=== PATIENT | female | born 1980 ===

== ENCOUNTER 2025-03-12 02:11 | Inpatient (IN) | payer MEDICAID, SELFPAY ==
[2025-03-12] VITALS (14 sets, daily range): BP systolic 109–126; BP diastolic 58–77; PULSE 43–75; RESP 12–20; TEMP 36–37.1; O2SAT 96–100; BMI 37.1
--- NOTE | ~2025-03-12 | CT_ITS ---
CLINICAL HISTORY: RUQ pain, biliary pathology? CT abdomen and pelvis with contrast Comparison: None Findings: The lung bases are clear. Numerous calcified gallstones within the moderately distended gallbladder. Mild inflammatory change involving the gallbladder neck with wall thickening. No significant pericholecystic fluid. No biliary ductal dilation. The liver and spleen are unremarkable. Pancreas, adrenal glands and kidneys demonstrate no acute process. No radiopaque stones or hydronephrosis. No bowel obstruction, pneumoperitoneum, or pneumatosis. Bladder and reproductive organs are unremarkable. Normal appendix. No fluid collections or adenopathy. No vascular dilation. No acute fracture. IMPRESSION: Numerous calcified gallstones within a moderately distended gallbladder. There may be a stone impacted in the gallbladder neck. Consider right upper quadrant ultrasound. No intra or extrahepatic biliary ductal dilation. This document has been electronically signed by: Pepper Dee MD on 03/12/2025 06:26:20
--- NOTE | ~2025-03-12 | US_ITS ---
EXAMINATION: US ABDOMEN LIMITED CLINICAL INFORMATION: Right upper quadrant pain.. COMPARISON: Correlation made with CT abdomen and pelvis dated same day. TECHNIQUE: Real-time imaging of the right upper quadrant abdominal viscera. FINDINGS: Imaged aspects of the liver appear normal. GALLBLADDER: There are numerous shadowing gallstones within the gallbladder. There is a stone in the region of the gallbladder neck. No definite wall thickening, edema, or pericholecystic fluid collection. There was a positive sonographic Moncada's sign at the time of the examination. COMMON BILE DUCT: Normal in caliber measuring 0.7 cm in diameter. No definite obstructing abnormality. FREE FLUID: None. US/US abdomen limited IMPRESSION: 1. Cholelithiasis with positive sonographic Moncada's sign. No wall thickening or pericholecystic fluid collection evident. Findings are equivocal for acute cholecystitis. 2. There is no biliary dilatation present. Electronically signed by: Nasir Villareal MD 03/12/2025 09:21 AM EDT
[2025-03-12 02:37] LABS: MANUAL DIFF FLAG NO
[2025-03-12 02:38] LABS: Hematocrit 36.3 % (37.0-47.0); Hemoglobin 12.6 g/dl (12.0-16.0); Imm Gran Abs Auto 0.01 X10*3/uL (0.00-0.03); Imm Gran Pct Auto 0.1 % (0.0-0.4); Lymphocytes Absolute Auto 1.6 X10*3/uL (1.2-4.9); Mean Corpuscular HGB Conc 34.7 g/dl (31.0-35.0); Mean Corpuscular Hemoglobin 30.7 pg (27.0-33.0); Mean Corpuscular Volume 88.3 fL (80.0-98.0); NRBC Abs Auto 0.000 X10*3/uL (0.0-0.012); NRBC Pct Auto 0.0 /100WBC (0.0-0.2); Platelet Count 219 X10*3/uL (160-400); Red Blood Count 4.11 X10*6/uL (4.20-5.50); White Blood Count 7.6 X10*3/uL (4.8-10.8)
[2025-03-12 02:39] LABS: Appearance Urine Clear; Glucose Urine UA Negative (Negative); PH 6.5 (5.0-9.0); Specific Gravity - Urine 1.010 (1.005-1.025); UMIC TRIGGER UACC YES
[2025-03-12 03:00] LABS: Anion Gap 12 (12-20); Blood Urea Nitrogen 7 mg/dL (9-16); Calcium 8.8 mg/dL (8.4-10.2); Carbon Dioxide 25 mmol/L (22-29); Chloride 107 mmol/L (96-108); Creatinine Clr Calc Pharmacy 109.2; Estimated Glomerular Filt Rate > 60; Lipase 21 U/L (8-78); Potassium 3.8 mmol/L (3.3-5.1); Sodium 140 mmol/L (135-145)
--- NOTE | 2025-03-12 03:03 | ED_ITS ---
HPI - General Adult General Chief complaint: Abdominal Pain Stated complaint: abd pain Time Seen by Provider: 03/12/25 02:52 Source: patient Limitations: no limitations History of Present Illness ED Provider: Sarita Vale PA-C HPI narrative: 44-year-old female who is morbidly obese, presents with the acute onset upper abdominal pain. Patient states she developed epigastric pain that radiates to the right upper quadrant after eating overnight. Pain fluctuates in intensity, becoming severe at times. Denies nausea vomiting diarrhea. Denies fever. Denies history of kidney stones, hematuria, dysuria. Related Data Previous Rx's ?Medication ?Instructions ?Recorded docusate sodium 100 mg capsule 100 mg PO BID PRN const ipation #30 03/12/25 (Colace) caps ibuprofen 600 mg tablet 600 mg PO Q6H PRN pain #30 t abs 03/12/25 oxycodone 5 mg tablet 5 mg PO Q4H PRN pain (scale score 03/12/25 7-10) #26 tabs Allergies Allergy/AdvReac Type Severity Reaction Status Date / Time No Known Allergies Allergy Verified 03/12/25 02:23 Review of Systems 2 Review of Systems: Yes all other systems are reviewed and are negative Constitutional: Constitutional: Denies fatigue and Denies fever(s) Cardiovascular: Cardiovascular: Denies chest pain and Denies dyspnea Respiratory: Respiratory: Denies cough and Denies dyspnea Gastrointestinal: Gastrointestinal: Reports abdominal pain, Denies diarrhea, Denies nausea and Denies vomiting Genitourinary: Genitourinary: Denies hematuria, Denies dysuria and Denies flank pain Endocrine: Endocrine: Denies fatigue PMFSH Past Medical History Attestation statement: The following information was validated with the patient. Medical History (Updated 03/12/25 @ 11:01 by Presley Pop PA-C) Thyroid nodule Surgical History (Updated 03/12/25 @ 10:20 by Donna Gill) S/P removal of thyroid nodule Social History Social History (Updated 03/12/25 @ 10:24 by Donna Gill) Alcohol intake: never Patient Tobacco Use Status: Never used Tobacco Smoked in Last 30 Days: No Use of substances other than those prescribed or required for medical reasons: No Have you been hit, kicked, punched, or otherwise hurt by someone within the past year? If so, by whom?: No Advance Directives: No Do you have a plan to hurt others: No Plan Patient : No Current occupational status: employed Current occupation: Teacher Physical Exam ED Vital Signs: Vital Signs - 24 hr 03/12/25 02:20 03/12/25 10:29 03/12/25 11:05 Temperature 96.8 F 98.7 F Pulse Rate 54 43 L Respiratory Rate 16 14 14 Blood Pressure 123/70 126/73 Pulse Oximetry 100 100 Oxygen Delivery Method Room Air Room Air 03/12/25 12:32 Temperature 97.4 F Pulse Rate 50 Respiratory Rate 20 Blood Pressure 112/58 L Pulse Oximetry 98 Oxygen Delivery Method Room Air BMI result Body Mass Index 37.1 Const Other: Alert well-appearing Orientation/consciousness: patient oriented x3 Resp Effort & Inspection: normal respiratory effort Cardio Other: Normal peripheral perfusion GI Other: Abdomen is soft, nondistended, mild to moderate tenderness epigastric and right upper quadrant without guarding Skin Other: Warm dry no rash Neuro General: patient oriented x3, gait normal, no focal motor deficits and CN's II- XI intact bilaterally Psych Other: Cooperative Medications Administered Generic Name Dose Route Start Last Admin Trade Name Freq PRN Reason Stop Dose Admin Lactated Ringer's 1,000 mls @ 80 mls/hr 03/12/25 09:45 03/12/25 11:23 Lr IVCONT Infused .[id number] [place] Infusion Piperacillin Sod/Tazobactam 50 mls @ 100 mls/hr 03/12/25 11:00 03/12/25 11:36 Sod 3.375 gm/ Sodium Chloride IV Infused Q6H [place] Infusion Discontinued Medications Generic Name Dose Route Start Last Admin Trade Name Freq PRN Reason Stop Dose Admin Sodium Chloride 1,000 mls @ 999 mls/hr 03/12/25 03:15 03/12/25 07:04 Ns IV 03/12/25 04:15 Infused .[id number] [place] Infusion Lactated Ringer's 1,000 mls @ 100 mls/hr 03/12/25 10:30 03/12/25 11:25 Lr IVCONT 100 mls/hr .Q10H [place] Administration Iohexol 85 ml 03/12/25 05:00 03/12/25 05:01 Iohexol 350 Mg/Ml 100 Ml Infus..Btl IV 03/12/25 05:01 85 ml ONCE ONE Administration Ketorolac Tromethamine 15 mg 03/12/25 03:02 03/12/25 03:27 Ketorolac Tromethamine 15 Mg/Ml Vial IVPUSH 03/12/25 03:03 15 mg ONCE ONE Administration Morphine Sulfate 4 mg 03/12/25 03:02 03/12/25 03:28 Morphine Sulfate 4 Mg/Ml Cartridge IVPUSH 03/12/25 03:03 4 mg ONCE ONE Administration Protocol Morphine Sulfate 4 mg 03/12/25 09:54 03/12/25 11:05 Morphine Sulfate 4 Mg/Ml Cartridge IVPUSH 03/12/25 09:55 4 mg ONCE ONE Administration Protocol Ondansetron HCl 4 mg 03/12/25 03:05 03/12/25 03:27 Ondansetron Hcl 4 Mg/2 Ml Vial IVPUSH 03/12/25 03:06 4 mg ONCE ONE Administration Medical Decision Making Medical Decision Making MDM Narrative: 44-year-old female who is morbidly obese, presents with the acute onset upper abdominal pain. Patient states she developed epigastric pain that radiates to the right upper quadrant after eating overnight. Pain fluctuates in intensity, becoming severe at times. Denies nausea vomiting diarrhea. Denies fever. Denies history of kidney stones, hematuria, dysuria. Problem: Obesity History: Per patient I have considered the following differential diagnoses: Biliary colic, cholecystitis, gastritis, pancreatitis, renal colic Plan: Given distribution of pain, in nature of symptoms, I am considering underlying biliary pathology as the most likely source. This could be gastritis. Obtaining a CT scan. Screening labs including LFTs and magnesium are already in process. Thought about renal colic, the pain does radiate to the right side, however she is not have kidney stones, she has no related symptoms, urine pending. Giving morphine Zofran and IV fluid. I have independently reviewed the following tests: Labs: CT abdomen and pelvis: Possible impacted stone I received sign-out from my colleague MOISES Vale CT scan shows a possible impacted gallstone, right upper quadrant ultrasound recommended. My interpretation of labs: No significant abnormality in patient's hematology and chemistry, normal LFTs. At this time, 06:35, patient states that she has no significant abdominal pain. Ultrasound pending Sign-out given to my colleague Dr. 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 Hawthorne 934am he will come see patient she is still having pain IVF started [facility] Lab Data [facility] Lab Attestation statement: I reviewed the patient's lab results. 03/12/25 02:28 03/12/25 02:28 Labs: Lab Results 03/12/25 03/12/25 Range/Units 02:28 02:33 WBC 7.6 (4.8-10.8) X10*3/uL RBC 4.11 L (4.20-5.50) X10*6/uL Hgb 12.6 (12.0-16.0) g/dl Hct 36.3 L (37.0-47.0) % MCV 88.3 (80.0-98.0) fL MCH 30.7 (27.0-33.0) pg MCHC 34.7 (31.0-35.0) g/dl RDW 13.6 (11.0-16.0) % Plt Count 219 (160-400) X10*3/uL MPV 10.9 (9.4-12.3) fL Immature Gran % (Auto) 0.1 (0.0-0.4) % Neut % (Auto) 68.7 (45-73) % Lymph % (Auto) 21.3 (20-40) % [place] % (Auto) 8.0 (2-11) % Eos % (Auto) 1.6 (0-4) % Baso % (Auto) 0.3 (0-2) % Lymph # (Auto) 1.6 (1.2-4.9) X10*3/uL [place] # (Auto) 0.6 (0.1-1.2) X10*3/uL Eos # (Auto) 0.1 (0.0-0.4) X10*3/uL Baso # (Auto) 0.0 (0.0-0.2) X10*3/uL Abs Immat Gran (auto) 0.01 (0.00-0.03) X10*3/uL Absolute Neuts (auto) 5.2 (2.0-8.3) x10*3/uL Absolute Nucleated RBC 0.000 (0.0-0.012) X10*3/uL Nucleated RBC % (auto) 0.0 (0.0-0.2) /100WBC Sodium 140 (135-145) mmol/L Potassium 3.8 (3.3-5.1) mmol/L Chloride 107 (96-108) mmol/L Carbon Dioxide 25 (22-29) mmol/L Anion Gap 12 (12-20) BUN 7 L (9-16) mg/dL Creatinine 0.81 (0.5-1.4) mg/dL Estim Creat Clear Calc 109.2 Estimated GFR > 60 Random Glucose 109 (60-115) mg/dL Calcium 8.8 (8.4-10.2) mg/dL Magnesium 2.0 (1.6-2.6) mg/dL Total Bilirubin 0.4 (0.0-1.0) mg/dL Direct Bilirubin 0.1 (0.0-0.5) mg/dL AST 24 (5-31) U/L ALT 20 (0-31) U/L Alkaline Phosphatase 62 (39-117) U/L Total Protein 6.8 (6.5-8.0) g/dL Albumin 4.2 (3.5-5.0) g/dL Lipase 21 (8-78) U/L Beta HCG, Quant < 2 mIU/mL Urine Color Yellow Urine Appearance Clear Urine pH 6.5 (5.0-9.0) Ur Specific [place] 1.010 (1.005-1.025) Urine Protein Negative (Neg-Trace) mg/dL Urine Glucose (UA) Negative (Negative) mg/dL Urine Ketones Negative (Negative) mg/dL Urine Blood Negative (Negative) Urine Nitrite Negative (Negative) Ur Leukocyte Esterase Trace H (Negative) Urine RBC 0-2 (0-2) /HPF Urine WBC 0-5 (0-5) /HPF Ur Squamous Epith Cells 6-10 (0-2) /HPF Urine Bacteria 1+ (None Seen) Hyaline Casts 0-2 (0-2) /LPF Independent Interpretation I performed an independent interpretation of an: Ultrasound (+ biliary colic stone near neck) Radiology Impression Discussion of test interpretation with radiology: I have reviewed the radiologist's reading. Radiologist Impression: The lung bases are clear. Numerous calcified gallstones within the moderately distended gallbladder. Mild inflammatory change involving the gallbladder neck with wall thickening. No significant pericholecystic fluid. No biliary ductal dilation. The liver and spleen are unremarkable. Pancreas, adrenal glands and kidneys demonstrate no acute process. No radiopaque stones or hydronephrosis. No bowel obstruction, pneumoperitoneum, or pneumatosis. Bladder and reproductive organs are unremarkable. Normal appendix. No fluid collections or adenopathy. No vascular dilation. No acute fracture. IMPRESSION: Numerous calcified gallstones within a moderately distended gallbladder. There may be a stone impacted in the gallbladder neck. Consider right upper quadrant ultrasound. No intra or extrahepatic biliary ductal dilation. Critical Care Time Critical Care Time Critical Care Time: Yes Total Critical Care Time: 45 Attestation: I have personally provided critical care time. Time includes review of lab data, radiology results, discussion with consultants, and monitoring for potential decompensation. Intervention performed as documented. Discharge Plan Discharge Clinical Impression: Cholelithiasis Qualifiers: Cholelithiasis location: gallbladder Cholecystitis presence: without cholecystitis Biliary obstruction: without biliary obstruction Qualified Code(s): K80.20 - Calculus of gallbladder without cholecystitis without obstruction Abdominal pain Qualifiers: Abdominal location: right upper quadrant Qualified Code(s): R10.11 - Right upper quadrant pain Patient Disposition: Xfer Other Transfer Details: short stay surgery Discharge Date/Time: 03/12/25 12:15
[2025-03-12 04:26] LABS: Alanine Aminotransferase 20 U/L (0-31); Albumin Level 4.2 g/dL (3.5-5.0); Alkaline Phosphatase 62 U/L (39-117); Aspartate Amino Transferase 24 U/L (5-31); Magnesium 2.0 mg/dL (1.6-2.6); Total Protein 6.8 g/dL (6.5-8.0)
[2025-03-12] MEDS: iohexoL 350 MG/ML 100 ML INFUS..BTL 85 ML IV (05:01)
--- NOTE | 2025-03-12 10:12 | P.HPGS_ITS ---
History of Present Illness History of Present Illness Date of Service: 03/12/25 <Donna Gill - Last Filed: 03/12/25 10:51> 03/12/25 <Presley Pop PA-C - Last Filed: 03/12/25 14:54> 03/13/25 <Kendall Hawthorne MD - Last Filed: 03/13/25 10:17> Chief complaint: Acute cholecystitis <Donna Gill - Last Filed: 03/12/25 10:51> Narrative: Rafi Cortes is a 44 year old F with a PMH of hypothyroidism coming in for acute abdominal pain. Patient reports burning RUQ pain that radiates to the LUQ. Pain woke her up last night, rated a 40/10, prompting her to visit the ER in [facility]. She left [facility] and came to [place]. Pain improved with IV morphine and IV toradol, now rated a 6/10. No prior similar episodes. Last BM yesterday afternoon. Passing flatulence. Patient reports associated nausea. No fever, chills, or skin changes. No sick contacts. <Donna Gill - Last Filed: 03/12/25 10:51> Rafi Cortes is a 44 year old F with a PMH of hypothyroidism coming in for acute abdominal pain. Patient reports burning RUQ pain that radiates to the LUQ. Pain woke her up last night, rated a 40/10, prompting her to visit the ER in [facility]. She left [facility] and came to [place]. Pain improved with IV morphine and IV toradol, now rated a 6/10. No prior similar episodes. Last BM yesterday afternoon. Passing flatulence. Patient reports associated nausea. No fever, chills, or skin changes. No sick contacts. Patient had no history of previous episodes similar to her symptoms. Labs were drawn emergency department, she does not have leukocytosis no elevations in liver enzymes and bilirubin. Patient had CT showing numerous large gallstones moderately distended gallbladder and some mild inflammatory changes with wall thickening. No biliary duct dilation. Abdominal ultrasound was also performed patient had a positive sonographic Moncada's sign, ultrasound did not show wall thickening. There was a stone in the region of the gallbladder neck findings are equivocal, suggesting acute cholecystitis. She denies any history of abdominal surgery. Medications include daily levothyroxine. Denies allergies. She denies cigarette use, recreational drug use, occasional alcohol use. <Presley Pop PA-C - Last Filed: 03/12/25 14:54> Review of Systems Review of Systems: Yes all other systems are reviewed and are negative <Presley Pop PA-C - Last Filed: 03/12/25 14:54> Constitutional: Comments: Negative fever, + chills <Donna Gill - Last Filed: 03/12/25 10:51> Gastrointestinal: Comments: + Nausea, + vomiting <Donna Gill - Last Filed: 03/12/25 10:51> PMFSH Past Medical History Medical History: Medical History (Updated 03/12/25 @ 11:01 by Presley Pop PA-C) Thyroid nodule <Donna Gill - Last Filed: 03/12/25 10:51> Surgical History Surgical History: Surgical History (Updated 03/12/25 @ 10:20 by Donna Gill) S/P removal of thyroid nodule <Donna Gill - Last Filed: 03/12/25 10:51> Social History Social History: Social History (Updated 03/12/25 @ 10:24 by Donna Gill) Household Members: Children Housing: House Do you presently have visiting nurse or other home services: No Alcohol intake: never Patient Tobacco Use Status: Never used Tobacco Smoked in Last 30 Days: No Use of substances other than those prescribed or required for medical reasons: No Currently Displaying Signs/Symptoms of Drug Intoxication Withdrawal: No Have you been hit, kicked, punched, or otherwise hurt by someone within the past year? If so, by whom?: No Do you feel safe in your current relationship?: No Current Relationship Is there a partner from a previous relationship who is making you feel unsafe now?: No Are you made to feel afraid or neglected: No Advance Directives: No Do you have a plan to hurt others: No Plan Recently lost weight without trying: No Eating poorly because of decreased appetite: No Nutrition Risks: No Nutritional Risk Patient : No : No Poor oral hygiene: No Current occupational status: employed Current occupation: Teacher <Donna Gill - Last Filed: 03/12/25 10:51> Meds Allergies/Adverse reactions: Allergies Allergy/AdvReac Type Severity Reaction Status Date / Time No Known Allergies Allergy Verified 03/12/25 02:23 <Donna Jairo - Last Filed: 03/12/25 10:51> Active Medications: Current Medications Lactated Ringer's (Lr) 1,000 mls @ 80 mls/hr IVCONT .[id number] [place] <Donna Jairo - Last Filed: 03/12/25 10:51> Home medications: Home Medications ?Medication ?Instructions ?Recorded ?Confirmed ?Last Taken ?Type cholecalciferol (vitamin D3) 25 25 mcg PO DAILY 03/12/25 03/11/25 History mcg (1,000 unit) tablet (Vitamin D3) levothyroxine 137 mcg tablet 137 mcg PO DAILY@0600 07/2703/12/25 03/11/25 History <Donna Jairo - Last Filed: 03/12/25 10:51> Physical Exam Vital Signs: Vital Signs: Last Vital Signs Temp 96.8 F 03/12/25 02:20 Pulse 54 03/12/25 02:20 Resp 16 03/12/25 02:20 BP 123/70 03/12/25 02:20 Pulse Ox 100 03/12/25 02:20 O2 Del Method Room Air 03/12/25 02:20 BMI result Body Mass Index 37.1 <Donna [place] - Last Filed: 03/12/25 10:51> Const: General: no acute distress <Donna [place] - Last Filed: 03/12/25 10:51> Orientation/consciousness: patient oriented x3 <Donna [place] - Last Filed: 03/12/25 10:51> Resp: Effort & Inspection: normal respiratory effort <Donna Jairo - Last Filed: 03/12/25 10:51> Effort & Inspection: able to speak in complete sentences <Presley Pop PA-C - Last Filed: 03/12/25 14:54> GI: Other: Abdomen soft, diffusely tender in RUQ and LUQ, non-distended, no rebound tenderness, negative moncada's sign, negative psoas sign <Donna [place] - Last Filed: 03/12/25 10:51> Inspection: No distended <Presley Pop PA-C - Last Filed: 03/12/25 14:54> Palpation (GI): Soft to palpation, not firm, Tenderness to palpation present (GI) in the RUQ; Moncada's sign negative, no guarding and not rigid <Presley Pop PA-C - Last Filed: 03/12/25 14:54> Skin: General skin exam: no rashes or lesions noted <Donna Jairo - L ast Filed: 03/12/25 10:51> General skin exam: no jaundice <Presley Pop PA-C - Last Filed: 03/12/25 14:54> Neuro: General: patient oriented x3 and moves all extremities <Donna Jairo - Last Filed: 03/12/25 10:51> Extrem: General: Yes no clubbing, cyanosis or edema <Donna [place]airo - Last Filed: 03/12/25 10:51> Psych: Mental Status: mental status grossly normal <Donna Jairo - Last Filed: 03/12/25 10:51> Results Results Labs: Short CBC 03/12/25 Range/Units 02:28 WBC 7.6 (4.8-10.8) X10*3/uL Hgb 12.6 (12.0-16.0) g/dl Hct 36.3 L (37.0-47.0) % Plt Count 219 (160-400) X10*3/uL BMP 03/12/25 02:28 Sodium 140 Potassium 3.8 Chloride 107 Carbon Dioxide 25 BUN 7 L Creatinine 0.81 Calcium 8.8 Liver Function 03/12/25 Range/Units 02:28 Total Bilirubin 0.4 (0.0-1.0) mg/dL Direct Bilirubin 0.1 (0.0-0.5) mg/dL AST 24 (5-31) U/L ALT 20 (0-31) U/L Alkaline Phosphatase 62 (39-117) U/L Albumin 4.2 (3.5-5.0) g/dL Urine 03/12/25 Range/Units 02:33 Urine Color Yellow Urine Appearance Clear Urine pH 6.5 (5.0-9.0) Ur Specific [place] 1.010 (1.005-1.025) Urine Protein Negative (Neg-Trace) mg/dL Urine Glucose (UA) Negative (Negative) mg/dL <Donna [place] - Last Filed: 03/12/25 10:51> Assessment and Plan (1) Acute cholecystitis: Status: Acute <Donna Gill - Last Filed: 03/12/25 10:51> Patient with right upper quadrant pain for about 2 days Current exam shows tenderness WBC normal CAT scan shows gallstones with 1 in the neck of the gallbladder She continues to have pain She wants to proceed with cholecystectomy I explained the technique of laparoscopic cholecystectomy and possible open cholecystectomy I reviewed the risks including but not limited to bleeding, infections, injury to other organs including bowel, liver, bile duct, bile leak, retained stones, as well as the benefits and alternatives I reviewed with her what to expect postoperatively She has given consent I have seen and examined the patient independently <Kendall Hawthorne MD - Last Filed: 03/13/25 10:17> Rafi Cortes is a 44 y/o F with a PMH of hypothyroidism and thyroid nodule removal coming in for acute 40/10 abdominal pain, onset last night. Pain relieved to a 6/10 with IV morphine. On PE, abdomen was soft, tender to palpation in the RUQ and LUQ, and non-distended. Negative moncada's sign and no rebound tenderness. Labs show a WBC of 7.6. Abdominal ultrasound revealed gallbladder stones in the neck of the gallbladder with shadowing, as well as a positive sonographic moncada's sign. CT revealed mild gallbladder distention and inflammation and numerous gallstones. Findings consistent with acute cholecystitis. For plan, proceed with laparoscopic cholecystectomy. Procedure discussed with the patient. Patient wants to proceed. Continue IV fluids, IV toradol, IV morphine, and NPO status. <Donna Gill - Last Filed: 03/12/25 10:51> Rafi Cortes is a 44 y/o F with a PMH of hypothyroidism and thyroid nodule removal coming in for acute 40/10 abdominal pain, onset last night. Pain relieved to a 6/10 with IV morphine. On PE, abdomen was soft, tender to palpation in the RUQ and LUQ, and non-distended. Negative moncada's sign and no rebound tenderness. Labs show a WBC of 7.6. Abdominal ultrasound revealed gallbladder stones in the neck of the gallbladder with shadowing, as well as a positive sonographic moncada's sign. CT revealed mild gallbladder distention and inflammation and numerous gallstones. Findings consistent with acute cholecystitis. For plan, proceed with laparoscopic cholecystectomy. Procedure discussed with the patient. Patient wants to proceed. Continue IV fluids, IV toradol, IV morphine, and NPO status. Patient seen and evaluated independently I agree with the above assessment and plan. Reviewed the imaging including the ultrasound and abdominal CT. There was evidence of multiple large stones in the gallbladder in the area of the neck with mild inflammatory changes. She does not have leukocytosis at this point. She was admitted to the surgical service. Patient was started on IV Zosyn, IV fluids, pain regimen, she is currently NPO. We discussed options for treatment, patient would like to proceed with laparoscopic cholecystectomy possible open this afternoon, this will be added on to the OR schedule. Discussed the risks of surgery including bleeding, infection damage to surrounding organs. Patient understands these risks and would like to proceed with surgical intervention <Presley Pop PA-C - Last Filed: 03/12/25 14:54> Rafi Cortes is a 44 y/o F with a PMH of hypothyroidism and thyroid nodule removal coming in for acute 40/10 abdominal pain, onset last night. Pain relieved to a 6/10 with IV morphine. On PE, abdomen was soft, tender to palpation in the RUQ and LUQ, and non-distended. Negative moncada's sign and no rebound tenderness. Labs show a WBC of 7.6. Abdominal ultrasound revealed gallbladder stones in the neck of the gallbladder with shadowing, as well as a positive sonographic moncada's sign. CT revealed mild gallbladder distention and inflammation and numerous gallstones. Findings consistent with acute cholecystitis. For plan, proceed with laparoscopic cholecystectomy. Procedure discussed with the patient. Patient wants to proceed. Continue IV fluids, IV toradol, IV morphine, and NPO status. Patient seen and evaluated independently I agree with the above assessment and plan. Reviewed the imaging including the ultrasound and abdominal CT. There was evidence of multiple large stones in the gallbladder in the area of the neck with mild inflammatory changes. She does not have leukocytosis at this point. She was admitted to the surgical service. Patient was started on IV Zosyn, IV fluids, pain regimen, she is currently NPO. We discussed options for treatment, patient would like to proceed with laparoscopic cholecystectomy possible open this afternoon, this will be added on to the OR schedule. Discussed the risks of surgery including bleeding, infection damage to surrounding organs. Patient understands these risks and would like to proceed with surgical intervention <Kendall Hawthorne MD - Last Filed: 03/13/25 10:17> Quality Stroke Does the patient have a stroke diagnosis?: No <Presley Pop PA-C - Last Filed: 03/12/25 14:54> VTE Prior VTE?: No <Presley Pop PA-C - Last Filed: 03/12/25 14:54> VTE Risk Level:: Surgical - moderate <Presley Pop PA-C - Last Filed: 03/12/25 14:54> VTE Device Contraindication: N/A - Device Ordered <Presley Pop PA-C - Last Filed: 03/12/25 14:54> VTE Drug Contraindication: Treatment Not Indicated <Presley Pop PA-C - Last Filed: 03/12/25 14:54> Procedures Date of Service Date of Service: 03/12/25 <Donna Gill - Last Filed: 03/12/25 10:51> 03/12/25 <Presley Pop PA-C - Last Filed: 03/12/25 14:54> 03/13/25 <Kendall Hawthorne MD - Last Filed: 03/13/25 10:17>
--- NOTE | 2025-03-12 10:42 | PC.NURSE ---
Patient presents to Ed c/o upper abdominal pain rated 10/10. Denies n/v. +bowel sounds. 20G in LAC. Abdomen CT revealed numerous gallstones. Patient to receive laparoscopic cholecystectomy, patient NPO. VSS and up to date. Report given to Surgery Short Stay.
[2025-03-12] MEDS: Lactated Ringers 1,000 ML 80 ML IVCONT ×2 (10:51→17:25)
[2025-03-12] MEDS: Lactated Ringers 1,000 ML 100 ML IVCONT (11:25)
--- NOTE | 2025-03-12 12:15 | PC.NURSE ---
patient transported to OR at this time.
--- NOTE | 2025-03-12 12:47 | P.CONAN_ITS ---
Documented by User: Kelly Tom NP 03/12/25 11:01 HPI - Anesthesia Eval Consult details Narrative: 44 yr old female for laparoscopic cholecystectomy. No chest pain or SOB. PMFSH Active Problems Active Problems: All Active Problems Abdominal pain (Acute) Cholelithiasis (Acute) Past Medical History Medical History (Updated 03/12/25 @ 11:01 by Presley Pop PA-C) Thyroid nodule Surgical History Surgical History (Updated 03/12/25 @ 10:20 by Donna Gill) S/P removal of thyroid nodule Social History Social History (Updated 03/12/25 @ 10:24 by Donna Gill) Alcohol intake: never Patient Tobacco Use Status: Never used Tobacco Smoked in Last 30 Days: No Use of substances other than those prescribed or required for medical reasons: No Have you been hit, kicked, punched, or otherwise hurt by someone within the past year? If so, by whom?: No Advance Directives: No Do you have a plan to hurt others: No Plan Patient : No Current occupational status: employed Current occupation: Teacher Meds Allergies Allergy/AdvReac Type Severity Reaction Status Date / Time No Known Allergies Allergy Verified 03/12/25 02:23 Active Medications: Current Medications Lactated Ringer's (Lr) 1,000 mls @ 80 mls/hr IVCONT .[id number] [place] Exam Height,Weight and Vital Signs: Height 5 ft 6 in Weight 104.326 kg Last Vital Signs Temp 96.8 F 03/12/25 02:20 Pulse 54 03/12/25 02:20 Resp 16 03/12/25 02:20 BP 123/70 03/12/25 02:20 Pulse Ox 100 03/12/25 02:20 O2 Del Method Room Air 03/12/25 02:20 Pertinent Lab Results Pertinent Lab Results: Laboratory Tests 03/12/25 03/12/25 02:28 02:33 WBC 7.6 RBC 4.11 L Hgb 12.6 Hct 36.3 L MCV 88.3 MCH 30.7 MCHC 34.7 RDW 13.6 Plt Count 219 MPV 10.9 Immature Gran % (Auto) 0.1 Neut % (Auto) 68.7 Lymph % (Auto) 21.3 [place] % (Auto) 8.0 Eos % (Auto) 1.6 Baso % (Auto) 0.3 Lymph # (Auto) 1.6 [place] # (Auto) 0.6 Eos # (Auto) 0.1 Baso # (Auto) 0.0 Abs Immat Gran (auto) 0.01 Absolute Neuts (auto) 5.2 Absolute Nucleated RBC 0.000 Nucleated RBC % (auto) 0.0 Sodium 140 Potassium 3.8 Chloride 107 Carbon Dioxide 25 Anion Gap 12 BUN 7 L Creatinine 0.81 Estim Creat Clear Calc 109.2 Estimated GFR > 60 Random Glucose 109 Calcium 8.8 Magnesium 2.0 Total Bilirubin 0.4 Direct Bilirubin 0.1 AST 24 ALT 20 Alkaline Phosphatase 62 Total Protein 6.8 Albumin 4.2 Lipase 21 Urine Color Yellow Urine Appearance Clear Urine pH 6.5 Ur Specific [place] 1.010 Urine Protein Negative Urine Glucose (UA) Negative Urine Ketones Negative Urine Blood Negative Urine Nitrite Negative Ur Leukocyte Esterase Trace H Urine RBC 0-2 Urine WBC 0-5 Ur Squamous Epith Cells 6-10 Urine Bacteria 1+ Hyaline Casts 0-2 Airway Mallampati Class: II TM Dist: >3cm Neck ROM: Full Loose/Missing/Broken Teeth: Yes, Upper (chipped right upper ? 4 or 5) and Lower (missing molars b/l) Heart: RRR Lungs: clear to auscultation b/l Documented by User: Lianna Barrios DO 03/12/25 12:49 [facility] Past Medical History Medical History (Updated 03/12/25 @ 11:01 by Presley Pop PA-C) Thyroid nodule Family History Family history of problems with anesthesia: No Surgical History Surgical History (Updated 03/12/25 @ 10:20 by Donna Gill) S/P removal of thyroid nodule History of Problems with Anesthesia: No Social History Social History (Updated 03/12/25 @ 10:24 by Donna Gill) Alcohol intake: never Patient Tobacco Use Status: Never used Tobacco Smoked in Last 30 Days: No Use of substances other than those prescribed or required for medical reasons: No Have you been hit, kicked, punched, or otherwise hurt by someone within the past year? If so, by whom?: No Advance Directives: No Do you have a plan to hurt others: No Plan Patient : No Current occupational status: employed Current occupation: Teacher Meds Allergies Allergy/AdvReac Type Severity Reaction Status Date / Time No Known Allergies Allergy Verified 03/12/25 02:23 Exam Exam Date and Time: 03/12/25 1245 Airway Mallampati Class: II TM Dist: >3cm Neck ROM: Full Loose/Missing/Broken Teeth: Yes (chipped right upper incisor and missing molars) Heart: S1S2 Lungs: CTAB Assessment and Plan Assessment Anesthesia Assessment: Anesthesia Plan Discussed and Chart Reviewed Final Anesthetic Review Family History of Problems with Anesthesia: No History of Problems with Anesthesia: No NPO: Yes ASA Class: II Final Preanesthetic Review: No Changes in Pt Med Stat, Meds/Allgs Chart Reviewed, Consent Obtained/Reviewed and Anes Risks/Benef Reviewed Patient Risk: Low Procedure Risk: Intermediate Anesthetic Plan Anesthetic Plan: GA and Agree w/ Assess. and Plan Disposition: Standard PACU
--- NOTE | 2025-03-12 15:01 | W.PM.OPN ---
Operative Note Operative Note Date of Service: 03/12/25 Narrative: Preop diagnosis: Acute cholecystitis Postop diagnosis: The same Procedure: Laparoscopic cholecystectomy Surgeon: Kendall Hawthorne MD visitor services information assistant: MOISES Pop The patient is a 44 year old female here in the ER this morning for right upper quadrant pain. She had imaging studies showed gallstones but she had gallbladder distention and significant tenderness in the right upper quadrant. She therefore wanted to proceed with cholecystectomy. She understood the technique of the planned procedure as well as the risks, benefits, and alternatives. She was brought to the operating room. She was placed supine under general anesthesia via endotracheal tube. The abdomen was prepped and draped in the usual sterile fashion. A surgical time-out was done. The patient was receiving scheduled IV Zosyn. I made a short supraumbilical incision with a blade 15. This was carried down through the full-thickness of the skin and thick subcutaneous fat down to the fascia. The fascia was incised. The peritoneum was entered. Through this incision a Irvin port was introduced. Pneumoperitoneum was introduced to a pressure of 15 mm Hg. From here on the rest of the procedure was done under vision with the 10 mm 0 degree scope. With laparoscopic visualization and inserted a 12 mm port in the epigastric area below the subcostal margin. Two 5 mm ports introduced a small incision below the subcostal margin along the anterior axillary line and the midclavicular line. Graspers were placed through these working ports. The patient is placed in a head up and [id number] position The fundus of the gallbladder was seen. This was markedly distended very erythematous definitely inflamed. This was also covered on the anterior wall by adherent omentum. We had to do a lot of careful dissection using the [place] dissector to peel off this thick omentum from the anterior gallbladder wall. We also used the tip of the laparoscopic suction catheter to do blunt dissection to continue to peel off this omentum from the rest of the gallbladder until was able to expose the neck. The gallbladder was markedly distended, very inflamed and edematous. We continued to use the [place] dissector to strip off all this indurated and fatty tissue from the neck until we are able to visualize what appeared to be the cystic duct. There was note of a lot of oozing from the entire area in view of the severe inflammation. Another grasper applied towards the neck of the gallbladder to retract this laterally. At this point therefore the bladder was being retracted in cephalad and lateral fashion to put the area of the cystic duct on stretch. I gently dissected the neck of the gallbladder with the [place] dissector to define the confluence with the cystic duct. We had to do a careful dissection in view of the severe induration in the area. We continued with this manner of dissection by peeling off the peritoneum of the gallbladder until I was able to carefully confirmed the confluence of the cystic duct with the neck of the gallbladder. With this dissection, we are able to also achieve a critical view of the hepatocystic triangle. There was note of significant oozing from the gallbladder throughout the dissection in view of the acute inflammation. The cystic artery was also just alongside the duct. We therefore applied clips on the cystic duct with 2 clips being applied distally. The cystic duct was transected between clips with Endo scissors. We gently dissected the artery some more. We then applied clips with 2 clips being applied distally. The cystic artery was transected between clips endo-scissors. With a retraction of the gallbladder away from the liver bed, I proceeded to then gently divide the hilum with the electrocautery hook. We incised the peritoneum of the gallbladder he had interface with the liver bed with electrocautery. The gallbladder was very edematous, and severe inflamed. We proceeded with separation of the gallbladder from the liver bed along without the well-defined plane of dissection using a combination of blunt dissection and electrocautery hook all the way to the fundus until the entire gallbladder was completely from the liver bed. The gallbladder was retrieved through an endobag through the umbilical incision. I reinserted all ports and re-insufflated. I examined all 4 quadrants. There was no other pathology. There was no evidence of any bowel injury or any bile leak . Once we confirmed good hemostasis, I desufflated through the port sites. I removed all ports under vision with the laparoscope. The umbilical port was removed last. The fascia of the umbilical incision was closed with a [id number] Polysorb 0 stitch. Skin closure was achieved on all incisions with Polysorb 4-0 subcuticular running sutures. All incisions were infiltrated with Marcaine 0.5% for postop analgesia. Steri-Strips and dressings were applied. The patient tolerated the procedure well. There were no immediate complications. Initial and final counts of sponges and instruments were correct. Estimated blood loss was about 50 cc. The patient was extubated without difficulty and transferred to the recovery room with stable vital signs.
--- NOTE | 2025-03-12 17:45 | PM.EVENT ---
Event Note Date of Service: 03/12/25 Event Note: Seen postop Underwent laparoscopic cholecystectomy earlier Looks comfortable Says she has good pain control Stable vital signs Abdomen is soft Pain management Diet as tolerated Likely home tomorrow Family in the room Time Spent With Patient Time: Total time managing care of this patient today ____ minutes.
[2025-03-12] MEDS: oxyCODONE HCl Immed Release 5 MG TABLET PO (18:00)
--- NOTE | 2025-03-12 18:46 | PHA.MEDREC ---
Addendum entered by Edenilson Stinson [facility] 03/12/25 18:48: med rec reviewed Original Note: Pharmacy Consult ? Medication Reconciliation Pharmacy has completed the medication reconciliation Spoke to patient to confirm med list. .
[2025-03-13] MEDS: oxyCODONE HCl Immed Release 5 MG TABLET PO ×2 (03:21→11:10)
[2025-03-13 03:52] VITALS: BP 130/66; PULSE 50; RESP 18; TEMP 36.6; O2SAT 93
[2025-03-13 07:45] VITALS: BP 93/52; PULSE 56; RESP 16; TEMP 36.3; O2SAT 93
[2025-03-13] MEDS: Lactated Ringers 1,000 ML 80 ML IVCONT (08:05)
--- NOTE | 2025-03-13 10:15 | PM.PNGS ---
Subjective Subjective Date of Service: 03/13/25 Interval history: No events overnight Feels well overall Good pain control Tolerating diet Physical Exam Vital Signs: Vital Signs: Last Vital Signs Temp 97.3 F 03/13/25 07:45 Pulse 56 03/13/25 07:45 Resp 16 03/13/25 07:45 BP 93/52 L 03/13/25 07:45 Pulse Ox 93 03/13/25 07:45 O2 Del Method Room Air 03/13/25 07:45 O2 Flow Rate 4 03/12/25 15:30 BMI result Body Mass Index 37.1 Const: General: comfortable and no acute distress Resp: Effort & Inspection: normal respiratory effort Cardio: Rate: regular rate GI: Palpation (GI): Soft to palpation, not firm and no guarding Objective Data Active Medications Acetaminophen (Acetaminophen 325 Mg Tablet) 650 mg PO Q6H PRN PRN Reason: Pain, Mild 1-3,fever,headache Calcium Carbonate (Calcium Carbonate 750 Mg Tab.Chew) 750 mg PO Q4H PRN PRN Reason: Heartburn Lactated Ringer's (Lr) 1,000 mls @ 80 mls/hr IVCONT .[id number] [facility] Last Admin: 03/13/25 08:05 Dose: 80 mls/hr Documented By: ELLYN Magnesium Hydroxide (Milk Of Magnesia 30 Ml Oral.Susp) 30 ml PO DAILY PRN PRN Reason: Constipation Melatonin (Melatonin 3 Mg Tablet) 6 mg PO BEDTIME PRN PRN Reason: Insomnia Morphine Sulfate (Morphine Sulfate 4 Mg/Ml Cartridge) 4 mg IVPUSH Q4H PRN; Protocol PRN Reason: Pain, Severe (Pain Scale 7-10) Ondansetron HCl (Ondansetron Hcl 4 Mg/2 Ml Vial) 4 mg IVPUSH Q8H PRN PRN Reason: Nausea and Vomiting Oxycodone HCl (Oxycodone Hcl Immed Release 5 Mg Tablet) 5 mg PO Q6H PRN PRN Reason: Pain, Moderate(Pain Scale 4-6) Last Admin: 03/13/25 03:21 Dose: 5 mg Documented By: NADEEN Comments: per pt request Sodium Chloride (0.9 % Sodium Chloride Flush 3 Ml Syringe) [facility] Last Admin: 03/13/25 08:06 Dose: Not Given Documented By: ELLYN Non-Admin Reason: IV Running Labs 03/12/25 02:28 03/12/25 02:28 Labs: Laboratory Results - last 24 hr 03/12/25 02:28 Beta HCG, Quant < 2 Procedures Date of Service Date of Service: 03/13/25 Progress Note: A&P Assessment and plan (1) Acute cholecystitis: Status: Acute Assessment and Plan: Status post laparoscopic cholecystectomy Doing very well Tolerating diet Okay to DC home today Discharge instructions reinforced with the patient She will follow up in the office Time Spent With Patient Time: Total time managing care of this patient today ____ minutes. Quality Stroke Does the patient have a stroke diagnosis?: No VTE Prior VTE?: No VTE Risk Level:: Surgical - moderate VTE Device Contraindication: N/A - Device Ordered VTE Drug Contraindication: Treatment Not Indicated
--- NOTE | 2025-03-13 10:52 | MHC.CM.PN ---
PT REPORTS SHE SHARES A HOME WITH HER SISTER AND SON SHE IS INDEPENDENT WITH CARE AND HAS NO DME SHE DECLINES A HCP SHE DOES NOT HAVE A PCP, LIST PROVIDED PT WILL DC HOME TODAY WITH NO SERVICES VIA PRIVATE TRANSPORT
--- NOTE | 2025-03-13 14:57 | HO.POSTANES ---
Post Anesthesia Evaluation Post Anesthesia Evaluation Date of Service: 03/13/25 Vital Signs: Vital Signs Temp Pulse Resp BP Pulse Ox O2 Del Method 03/13/25 07:45 97.3 F 56 16 93/52 L 93 Room Air 03/13/25 03:52 97.8 F 50 18 130/66 93 Room Air Anesthesia: General Endotracheal-GETA Mental Status: Awake Pain Control: Satisfactory Nausea/Vomiting: None Hydration: Adequate Anesthesia-Related Issues: No Anes. Related Issues
--- NOTE | 2025-03-17 08:57 | P.DS_ITS ---
DS: Providers Provider Date of Service: 03/13/25 Date of admission: 03/12/25 13:01 Date of discharge: 03/13/25 Primary care physician: Unknown Physician Admitting clinician: Kendall Hawthorne Attending physician on admission: Kendall Hawthorne Attending physician on discharge: Kendall Hawthorne DS: Diagnosis Discharge Diagnosis (1) Acute cholecystitis: Status: Acute DS: Summary Hospital Course Hospital Course: admission HPI: Rafi Cortes is a 44 year old F with a PMH of hypothyroidism coming in for acute abdominal pain. Patient reports burning RUQ pain that radiates to the LUQ. Pain woke her up last night, rated a 40/10, prompting her to visit the ER in [facility]. She left [facility] and came to [place]. Pain improved with IV morphine and IV toradol, now rated a 6/10. No prior similar episodes. Last BM yesterday afternoon. Passing flatulence. Patient reports associated nausea. No fever, chills, or skin changes. No sick contacts. Patient had no history of previous episodes similar to her symptoms. Labs were drawn emergency department, she does not have leukocytosis no elevations in liver enzymes and bilirubin. Patient had CT showing numerous large gallstones moderately distended gallbladder and some mild inflammatory changes with wall thickening. No biliary duct dilation. Abdominal ultrasound was also performed patient had a positive sonographic Mu rphy's sign, ultrasound did not show wall thickening. There was a stone in the region of the gallbladder neck findings are equivocal, suggesting acute cholecystitis. She denies any history of abdominal surgery. Medications include daily levothyroxine. Denies allergies. She denies cigarette use, recreational drug use, occasional alcohol use. For plan, proceed with laparoscopic cholecystectomy. Procedure discussed with the patient. Patient wants to proceed. Continue IV fluids, IV toradol, IV morphine, and NPO status. hospital course: Patient was brought to the OR for laparoscopic cholecystectomy. Patient tolerated procedure well and was transferred to the [facility] surg floor for further postoperative management. Her diet was advanced to regular diet, her pain was well controlled that afternoon after the procedure. On POD 1 patient continued to do well., only experiencing incisional site pain. She was tolerating regular diet, pain continued to be well controlled on oral medications. She felt ready for discharge. At the time of discharge her vital signs were stable, her abdomen was soft and benign other than incisional site tenderness. Incision site dressings remained in place, no strike through noted Status at Discharge Overall status at discharge: patient is progressing back to baseline Time Attestation Discharge Coordination Time (in mins): 30 Quality: Safe Use of Opioids Does Pt have an Active Cancer Diagnosis on the Problem List?: No Quality: Stroke Does the patient have a stroke diagnosis?: No Physical Exam Vital Signs: Vital Signs: Last Vital Signs Temp 97.3 F 03/13/25 07:45 Pulse 56 03/13/25 07:45 Resp 16 03/13/25 07:45 BP 93/52 L 03/13/25 07:45 Pulse Ox 93 03/13/25 07:45 O2 Del Method Room Air 03/13/25 07:45 O2 Flow Rate 4 03/12/25 15:30 BMI result Body Mass Index 37.1 Const: General: comfortable and no acute distress Orientation/consciousness: patient oriented x3 Resp: Effort & Inspection: normal respiratory effort and able to speak in complete sentences GI: Other: Incision site dressings in place, dressings are clean and dry, no strike through Inspection: No distended Palpation (GI): Soft to palpation, not firm, Tenderness to palpation present (GI) (Incisional), no guarding and not rigid Neuro: General: patient oriented x3 DS: Data Data Completed and Pending Completed studies during hospitalization [Text1]: Pending at discharge 03/12/25 14:28 Surgical [PTH] Routine Discharge Plan Discharge Anticipated Discharge Date/Time: 03/13/25 13:10 Patient Disposition: Home, Self-Care Discharge Diagnosis: acute cholecystitis, s/p laparoscopic cholecystectomy Referrals: Kendall Hawthorne MD [Physician, General Surgery] - 2 Weeks Physician,Unknown J [Primary Care Provider, Medical] - 1 Week Discharge Medications: New oxycodone-acetaminophen 5-325 mg tablet 1 tab PO Q6H PRN (Reason: pain) Qty: 20 0RF Rx Instructions: Partial Fill upon patient request. ibuprofen 600 mg tablet 600 mg PO Q6H PRN (Reason: pain) Qty: 30 0RF No Action levothyroxine 137 mcg tablet 137 mcg PO DAILY@0600 cholecalciferol (vitamin D3) [Vitamin D3] 25 mcg (1,000 unit) tablet 25 mcg PO DAILY Discharge Orders: Discharge Order (Routine); Ordered 03/13/25 Ordered By: Kendall Hawthorne Diet: Low fat, low cholesterol Activity on Discharge: No heavy lifting Stand Alone Forms: Patient Portal Discharge page Print Language: Urugu[place] Activity Restrictions/Additional Instructions: If the incision area is tender, you may apply an ice pack for short intervals (No more than 20 minutes on, followed by at least 20 minutes off). Do not apply heat. Do not use creams, lotions, or topical antibiotics. These can cause infection or allergic reaction. Ok to shower 24 hours after your surgery. Remove bandaids in 2 days and replace. You have steri strips (small white cloth strips) covering your incision- these will fall off ~1 week. Follow up in office with Dr. Hawthorne in 2 weeks. ([phone]) No heavy lifting (>10-20lbs) or strenuous activity! Call Your Doctor If: -Your temperature exceeds 101.5? F -You experience excessive pain or swelling -You have an unexpected reaction to medication -You have excessive bleeding -You experience continued vomiting/nausea -Your incision begins to separate -Your incision shows signs of infection such as increased redness, swelling, excessive pain, drainage (light blood or clear fluid is normal) or heat Care Plan Goals: Return to baseline health and resume normal activities following recovery period. Health Concerns: acute cholecystitis, cholelithiasis Plan of Treatment: s/p laparoscopic cholecystectomy f/u in office in 2 weeks pain control Assessment: Doing well post op. Discharge Date/Time: 03/13/25 11:58
== END 2025-03-13 11:58 | disposition home or self-care (01) | DRG 263 ==
LOC: HO.ED 10:09 → HO.SSS 10:15 → HO.SSSA 13:02 → HO.S3 16:14
PROVIDERS: Physician Assistant Medical; Admitting Provider Surgery; Emergency Provider Emergency Medicine; Visit Provider Surgery
PROC: 0FT44ZZ Resection of Gallbladder, Percutaneous Endoscopic Approach (ICD-10-PCS; CPT 47562; principal; 2025-03-12 13:30)
DX: K81.0 Acute cholecystitis (principal); Z79.890 Hormone replacement therapy; Z79.899 Other long term (current) drug therapy
CPT/HCPCS: 47562; 36415; 74177; 76705; 80048; 80076; 81001; 83690; 83735; 84702; 85025; 88304; 99221; 99284; J0131; J1100; J1171; J1885; J2003; J2250; J2270; J2405; J2543; J2704; J2795; J3010; J7120; Q9967

== ENCOUNTER → 2025-03-12 04:06 | Outpatient (BNV) | payer MEDICAID, SELFPAY | PROVIDERS: Emergency Provider Emergency Medicine; Visit Provider Radiology Diagnostic Radiology | DX: K80.20 Calculus of gallbladder without cholecystitis without obstruction (principal); K82.8 Other specified diseases of gallbladder | CPT/HCPCS: 74177; 76705 ==

== ENCOUNTER → 2025-03-12 13:01 | Outpatient (BNV) | payer MEDICAID, SELFPAY | PROVIDERS: Admitting Provider Surgery; Emergency Provider Emergency Medicine; Visit Provider Surgery | DX: K81.0 Acute cholecystitis (principal) | CPT/HCPCS: 47562; 99024; 99222; 99499 ==

== ENCOUNTER 2025-03-29 14:56 | Outpatient (AMB) | payer MEDICAID, SELFPAY ==
--- NOTE | 2025-03-29 14:58 | MHC.OFFVIS ---
Vital Signs 03/29/25 15:07 Weight 223 lb BP 124/75 Blood Pressure Location Rt brachial Position Sitting Pulse 62 Intake Visit Reasons: s/p appendectomy Intake Note: Patient here s/p Laparoscopic cholecystectomy. Patient c/o: on and off sharp pain at superior incision. Taking rx pain meds as needed. Surgery (FM): 03-12-2025 [employer] Required: No Accompanied by: Son Allergies No Known Allergies Allergy (Verified 03/29/25 15:07) HPI HPI s/p appendectomy: Details: Patient doing well overall. Experiencing intermittent pain, especially with ambulation at the umbilical port site. Had some concern for infection at the epigastric port site. Appetite and bowel function returning towards baseline. Endorsing some mild nausea in the mornings. Denies vomiting. Denies fever, chills. 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 She wants to know what exercises she can do at home [facility] Medical History (Updated 03/21/25 @ 00:01 by Gurwinder Odonnell) Thyroid nodule Surgical History (Updated 03/29/25 @ 16:37 by Presley Pop PA-C) History of laparoscopic cholecystectomy (03/12/25) S/P removal of thyroid nodule Social History (Updated 03/12/25 @ 10:24 by Donna Gill) Household Members: Children Housing: House Do you presently have visiting nurse or other home services: No Alcohol intake: never Patient Tobacco Use Status: Never used Tobacco service: No Current occupational status: employed Current occupation: Teacher Review of Systems Const All systems reviewed & are unremarkable except as noted in HPI and below Physical Exam Vital Signs: Last Vital Signs Pulse 62 03/29/25 15:07 BP 124/75 03/29/25 15:07 Const General: comfortable and no acute distress Orientation/consciousness: patient oriented x3 Resp Effort & Inspection: normal respiratory effort and able to speak in complete sentences GI Other: Incision sites appear to be healing well no erythema, swelling, discharge Inspection: No distended Palpation (GI): Soft to palpation, Tenderness to palpation present (GI) (Tenderness around incision sites), no guarding and not rigid Neuro General: patient oriented x3 Assessment & Plan Assessment & Plan (1) S/P laparoscopic cholecystectomy: Code(s): Z90.49 - Acquired absence of other specified parts of digestive tract Category: Medical Plan 44-year-old female s/p laparoscopic cholecystectomy presenting to the office for routine 2 week follow-up. Overall patient doing well. I reassured her that the pain related to the incision sites is appropriate for this stage of the postoperative management and should decrease with time. On exam her abdomen is soft and benign, there is some tenderness around the incision sites. The incision sites appear to be healing well I do not have concern for infection at this time. In regards to activity we will keep restrictions no heavy lifting greater than 15-20 lb for the next 2 weeks. She is okay to do light activity such as walking or a light arm exercise, I told her to avoid any exercises with heavy lifting without require strong core activation. We will give her a note for work to cover her for the next 2 weeks while she continues to recover. She can follow up as needed with any concerns or questions prior to her next appointment. Coding Level of Care Code Global (30130) Diagnoses S/P laparoscopic cholecystectomy Z90.49
[2025-03-29 15:07] VITALS: BP 124/75; PULSE 62
== END 2025-03-29 15:19 | disposition home or self-care (01) ==
LOC: HO.HGS 14:56
DX: Z90.49 Acquired absence of other specified parts of digestive tract (principal)
CPT/HCPCS: 99024

== ENCOUNTER → 2025-03-29 14:56 | Outpatient (BNVA) | payer OTHER, SELFPAY | DX: R10.33 Periumbilical pain (principal); Z98.890 Other specified postprocedural states; Z90.49 Acquired absence of other specified parts of digestive tract | CPT/HCPCS: 99212 ==

== ENCOUNTER 2025-04-12 13:28 | Outpatient (AMB) | payer MEDICAID, SELFPAY ==
--- NOTE | 2025-04-12 13:35 | A.OFFVIS_ITS ---
Vital Signs 3 04/12/25 13:37 Height 5 ft 6 in Weight 222 lb BMI 35.8 BP 119/72 Blood Pressure Location Lt brachial Position Sitting Pulse 72 Pulse Oximetry (%) 98 Oxygen Delivery Method Room Air Intake Visit Reasons: s/p appendectomy Intake Note: Patient follow up for s/p appendectomy. Patient cc: feeling stitches out/discomfort. [employer] Required: No Accompanied by: Family/Other Allergies No Known Allergies Allergy (Verified 03/29/25 15:07) HPI HPI s/p appendectomy: Details: Overall doing well, denies pain. Appetite and bowel function at baseline. Patient states she is eating less but is happy to do so because she is trying to lose some weight. She does note that there is a stitch popping from the epigastric incision site. States she initially was going to pull it out herself but decided against it and saved it for this appointment. She wants to get back to exercising, and hopefully returned to work [facility] Medical History (Updated 03/21/25 @ 00:01 by Gurwinder Odonnell) Thyroid nodule Surgical History History of laparoscopic cholecystectomy (03/12/25) S/P removal of thyroid nodule Social History Household Members: Children Housing: House Do you presently have visiting nurse or other home services: No Alcohol intake: never Patient Tobacco Use Status: Never used Tobacco service: No Current occupational status: employed Current occupation: Teacher Review of Systems Const All systems reviewed & are unremarkable except as noted in HPI and below Physical Exam Vital Signs: Last Vital Signs Pulse 72 04/12/25 13:37 BP 119/72 04/12/25 13:37 Pulse Ox 98 04/12/25 13:37 Oxygen Delivery Method Room Air 04/12/25 13:37 BMI result Body Mass Index 35.8 Const General: comfortable and no acute distress Orientation/consciousness: patient oriented x3 Resp Effort & Inspection: normal respiratory effort and able to speak in complete sentences GI Other: Epigastric trocar site has 1 retained suture poking out of the right side. When removed using sharp scissors, there was no discharge noted. I was unable to palpate any fluid collection, no surrounding erythema Inspection: No distended Palpation (GI): Soft to palpation, nontender, no guarding and not rigid Abdomen image: 2 1. Retained suture Neuro General: patient oriented x3 Assessment & Plan Assessment & Plan (1) S/P laparoscopic cholecystectomy: Code(s): Z90.49 - Acquired absence of other specified parts of digestive tract Category: Surgical Plan 44-year-old female s/p laparoscopic cholecystectomy presenting to the office for routine one-month follow-up. Overall patient doing well. Her pain has improved. Only concern is there is a suture protruding from the right side of the epigastric trocar site. I used a forceps and sharp scissors to grab and remove the suture from the incision site. There was no discharge noted when I removed this. Additionally there was no palpable fluid collection in the incision site. It was nontender without surrounding erythema. On exam her abdomen is soft and benign. The additional incision sites appear to be healing well I do not have concern for infection at this time. The patient is okay to resume activity as tolerated. Recommended starting at half of her baseline and progressing towards her daily activity routine. She is okay to return to work without restrictions. Patient can follow up as needed for future concerns Coding Level of Care Code Global (53238) Diagnoses S/P laparoscopic cholecystectomy Z90.49
[2025-04-12 13:37] VITALS: BP 119/72; PULSE 72; O2SAT 98; BMI 35.8
== END 2025-04-12 14:05 | disposition home or self-care (01) ==
LOC: HO.HGS 13:29
DX: Z90.49 Acquired absence of other specified parts of digestive tract (principal)
CPT/HCPCS: 99024

== ENCOUNTER → 2025-04-12 13:28 | Outpatient (BNVA) | payer OTHER, SELFPAY | DX: Z90.49 Acquired absence of other specified parts of digestive tract (principal); Z98.890 Other specified postprocedural states | CPT/HCPCS: 99212 ==